=== PATIENT | female | born 1950 | race Caucasian/White ===

== ENCOUNTER 2022-06-04 16:19 | Inpatient (IN) | payer MEDICARE ==
[2022-06-04 18:03] VITALS: BMI 21.4
[2022-06-04] MEDS ORDERED: Ondansetron PF 4 MG/2 ML Vial IVP PRN (18:30)
[2022-06-04] MEDS ORDERED: Ondansetron ODT 4 MG TAB SL PRN (18:30)
[2022-06-04] MEDS ORDERED: Acetaminophen 325 MG TAB PO PRN (18:30)
[2022-06-04] MEDS ORDERED: Acetaminophen 650 MG Suppository PR PRN (19:09)
[2022-06-04] MEDS: HYDROcodone/Acetaminophen 5/325 mg Tablet PO PRN (20:23)
[2022-06-04] MEDS ORDERED: FENTANYL 50 MCG/ML 1 ML VIAL SLOW IVP SCH (22:30)
[2022-06-05] MEDS: FENTANYL 50 MCG/ML 1 ML VIAL SLOW IVP PRN ×2 (05:52→17:17)
[2022-06-05 06:53] LABS: #Eosinphils 0.1 thou/uL (0.0-0.7); #Lymphocytes 1.4 thou/uL (1.20-3.40); #Monocytes 1.1 thou/uL (0.11-0.59); #Neutrophils 6.9 thou/uL (1.40-6.50); %Basophils 0.3 % (0.0-1.0); %Eosinophils 0.9 % (0.0-10.0); %Monocytes 11.2 % (0.0-10.0); %Neutrophils 72.7 % (42.0-75.0); Hemoglobin 11.5 g/dL (12.0-16.0); Mean Corpuscular HGB CONC 31.3 g/dL (32.0-36.0); Mean Corpuscular Hemoglobin 29.5 pg (27.0-31.0); Mean Corpuscular Volume 94.1 fl (78.0-98.0); Mean Platelet Volume 6.8 fL (7.4-10.4); Platelet Count 254 10x3/uL (130-400); RBC Distribution Width 13.1 % (11.5-14.5); Red Blood Cell (RBC) Count 3.91 mill/uL (4.20-5.40); White Blood Cell (WBC) Count 9.5 10x3/uL (4.8-10.8)
[2022-06-05] MEDS ORDERED: Sodium Bicarbonate 2.5 MEQ/5 ML VIAL ONE (10:50)
[2022-06-05 12:45] LABS: Bilirubin Negative (Negative); Blood, Urine Negative (Negative); CAUTI Indications for Culture Urological Procedure; Clarity Clear (Clear); Glucose, Urine (Dipstick) Normal (Negative); Ketone, Urine Negative (Negative); Leukocyte 500 Leu/uL (Negative); Nitrite Negative (Negative); Protein, Urine (Dipstick) Negative (Neg-Trace); RBC/HPF 0-3 HPF (0-3); Specific Gravity, Urine 1.038 (1.002-1.036); Squamous Epithelial 0-3 HPF (0-3); Urobilinogen Normal mg/dL (Less than 2); pH, Urine 6.5 (5.0-9.0)
[2022-06-05 12:59] LABS: Bacteria/HPF 1+ HPF (None Seen); Urine Culture Reflex Yes Yes; WBC/HPF 21-50 HPF (0-3)
[2022-06-06] MEDS: HYDROcodone/Acetaminophen 5/325 mg Tablet PO PRN ×2 (09:46→17:20)
[2022-06-06 12:04] VITALS: TEMP 98
[2022-06-06 16:00] VITALS: BP 136/77
== END 2022-06-06 17:35 | disposition home or self-care (01) | DRG 549 ==
LOC: SURG A 16:19
PROVIDERS: ADMIT Internal Medicine; ATTEND Internal Medicine
PROC: 0S993ZZ Drainage of Right Hip Joint, Percutaneous Approach (ICD-10-PCS; principal; 2022-06-05)
DX: M00.9 Pyogenic arthritis, unspecified (principal); N30.00 Acute cystitis without hematuria; Z20.822 Contact with and (suspected) exposure to COVID-19; F17.210 Nicotine dependence, cigarettes, uncomplicated; K76.89 Other specified diseases of liver; Z79.51 Long term (current) use of inhaled steroids
CPT/HCPCS: 36415; 49180; 77002; 81001; 85025; 85652; 86140; 87086; J3010; U0003; U0005